=== PATIENT | female | born 1980 | race Caucasian/White ===

== ENCOUNTER → 2019-12-11 | Outpatient (CLI) | payer OTHER, SELFPAY ==
[2019-12-16 15:49] LABS: HPV Reflexed? NOT INDICATED
== END | disposition home or self-care (01) ==
LOC: LABSPEC 10:49
PROVIDERS: PCP Family Medicine; Visit Provider Obstetrics & Gynecology
DX: Z12.4 Encounter for screening for malignant neoplasm of cervix (principal)
CPT/HCPCS: 88175; G0145

== ENCOUNTER → 2022-03-22 | Outpatient (CLI) | payer OTHER, SELFPAY ==
--- NOTE | 2022-03-22 14:22 | BI_ITS ---
MAMMOGRAPHY - BILATERAL SCREENING 3-D TOMOSYNTHESIS REASON FOR EXAM: Female, 41 years old. Routine screening PERTINENT HISTORY: Aunt with breast cancer, history of reduction surgery.. TECHNIQUE: 2-D mammograms and 3-D Tomosynthesis of the breast (s) were performed. CAD was performed. COMPARISON: 11/27/2012 FINDINGS: The breast composition is composed of scattered fibroglandular density. Scattered benign calcifications are seen. No dense spiculated masses or suspicious microcalcifications are identified. Stable architectural distortion from previous reduction surgery. Stable postoperative calcifications. There is no skin thickening or retraction. There has been no significant change since the prior study. BI/SCRN MAMM (CAD)W/KEVEN BILAT IMPRESSION: No mammographic signs of malignancy. Routine yearly mammograms recommended. ASSESSMENT CATEGORY: BIRADS Category 2: Benign. A letter regarding these results will be sent to the patient by the facility within 30 days. FOLLOW UP RECOMMENDATION: Yearly follow up mammogram recommended. (A) Approximately 10% of breast cancers are not detected by mammography. A normal mammogram should not delay biopsy of a clinically suspicious abnormality. Electronically Signed: Tu Wise MD at 15:18 EDT ,
== END | disposition home or self-care (01) ==
LOC: OPBI 14:19
PROVIDERS: PCP Family Medicine; Visit Provider Obstetrics & Gynecology
DX: Z12.31 Encounter for screening mammogram for malignant neoplasm of breast (principal)
CPT/HCPCS: 77063; 77067

== ENCOUNTER 2022-08-06 15:29 | Emergency (ER) | payer OTHER, SELFPAY ==
[2022-08-06 15:30] VITALS: BP 129/75; PULSE 86; RESP 14; TEMP 36.6; O2SAT 100; BMI 39.2
--- NOTE | 2022-08-06 15:43 | EX.ED.DYSGE1 ---
HPI <GERTRUDE Rowe - Last Filed: 08/06/22 17:27> History of Present Illness Chief Complaint: Lower Extremity Injury Narrative Narrative: 31-year-old female presents with right leg swelling. In May 2022 she had right foot surgery for plantar fasciitis, Achilles lengthening, and a bone spur. She was having pain and swelling the leg and on 07/25/22 had an ultrasound showing a gastrocnemius DVT. She started Eliquis on 07/26 and has been compliant. Swelling never went down and 3 days ago the foot started to look red. She went to [facility] and had an ultrasound showing there was no longer DVT. She showed me these reports on her phone. They started Keflex in case it cellulitis. Her symptoms have not changed but she was worried and came in for reevaluation. She denies chest pain or shortness of breath. PFSH <GERTRUDE Rowe - Last Filed: 08/06/22 17:27> PFSH Allergy/AdvReac Type Severity Reaction Status Date / Time prednisone AdvReac Other Verified 08/06/22 15:30 Social History Smoking Status: Never smoker ROS <GERTRUDE Rowe - Last Filed: 08/06/22 17:27> ROS ED ROS Narrative Constitutional: Negative for fever, chills, malaise. CVS: Negative for palpitations, chest pain, syncope. Respiratory: Negative for shortness of breath, cough. GI: Negative for abdominal pain, nausea, vomiting. Neuro: Negative for motor/sensory dysfunction. Skin: Positive for redness of right leg. Musc: Positive for right lower extremity swelling. No trauma.. EXAM <GERTRUDE Rowe - Last Filed: 08/06/22 17:27> Physical Exam Narrative Exam Narrative: CONST: Patient sitting in no acute distress. EYES: Normal inspection. NECK: Normal inspection. RESP: No respiratory distress, CTAB. CVS: Regular rate and rhythm, no murmur, no gallop. SKIN: Slight erythema of right foot, no rash, warm, dry, intact. EXTREMITIES: Right lower leg is edematous as compared to left, no calf tenderness or palpable cords. Slight redness of the dorsal foot but no increased warmth, 2+ DP pulses. Full ROM, normal strength and sensation. NEURO: Oriented x4. PSYCH: Normal affect. Const Vital Signs: 08/06/22 15:30 08/06/22 16:32 Temperature 98 F Temperature Source Temporal Pulse Rate 86 59 L Respiratory Rate 14 16 Blood Pressure 129/75 H 126/77 H Blood Pressure Mean 93 Pulse Ox 100 97 Oxygen Delivery Method Room Air <Dr. Flakito Tarango MD - Last Filed: 08/06/22 16:27> Physical Exam Const Vital Signs: 08/06/22 15:30 08/06/22 16:32 Temperature 98 F Temperature Source Temporal Pulse Rate 86 59 L Respiratory Rate 14 16 Blood Pressure 129/75 H 126/77 H Blood Pressure Mean 93 Pulse Ox 100 97 Oxygen Delivery Method Room Air MDM <GERTRUDE Rowe - Last Filed: 08/06/22 17:27> MDM MDM Narrative Medical decision making narrative: External records reviewed: I reviewed the ultrasound reports from on 07/25 that showed a right gastrocnemius clot and then again on 08/03/2021 at [facility] which showed no clot present. I have personally performed a face to face assessment of the patient and have reviewed the [facility] Note. I performed a substantive portion of the visit including all aspects of the following. My browne findings include: History is [41-year-old female prior DVT several weeks ago in her right lower extremity after having podiatry surgery on her foot and Achilles. Currently on Eliquis. She has had more swelling. Was seen at [facility] emergency department.. Placed on Keflex. Had an ultrasound done at another facility which was negative. She wanted it reevaluated. No fever. No chills.] Exam is [well-appearing 41-year-old. Vital signs stable afebrile. Pulse ox 100%. H EENT exam unremarkable. Lungs clear. Heart regular rhythm. Abdomen soft nontender. Moving all 4 extremities. Right lower leg below the knee has 1+ pitting edema. Normal DP pulse. Able to wiggle her toes. I do not feel any warmth. There is no significant redness. There is edema on the right side compared to the left. Right foot is neurovascular intact with normal touch sensation. Left leg is unremarkable.] Medical Decision Making [patient with right leg swelling with a history of a prior recent DVT on Eliquis. Ultrasound be obtained tomorrow. She is currently on antibiotics even though clinically I do not think this is infected. She can do outpatient follow-up if the noninvasive study is negative. Normally we will order noninvasive study to have done here tomorrow.] Other additions or changes: [None] <Dr. Flakito Tarango MD - Last Filed: 08/06/22 16:27> [facility] Narrative Medical decision making narrative: I have personally performed a face to face assessment of the patient and have reviewed the [facility] Note. I performed a substantive portion of the visit including all aspects of the following. My browne findings include: History is [41-year-old female prior DVT several weeks ago in her right lower extremity after having podiatry surgery on her foot and Achilles. Currently on Eliquis. She has had more swelling. Was seen at [facility] emergency department.. Placed on Keflex. Had an ultrasound done at another facility which was negative. She wanted it reevaluated. No fever. No chills.] Exam is [well-appearing 41-year-old. Vital signs stable afebrile. Pulse ox 100%. H EENT exam unremarkable. Lungs clear. Heart regular rhythm. Abdomen soft nontender. Moving all 4 extremities. Right lower leg below the knee has 1+ pitting edema. Normal DP pulse. Able to wiggle her toes. I do not feel any warmth. There is no significant redness. There is edema on the right side compared to the left. Right foot is neurovascular intact with normal touch sensation. Left leg is unremarkable.] Medical Decision Making [patient with right leg swelling with a history of a prior recent DVT on Eliquis. Ultrasound be obtained tomorrow. She is currently on antibiotics even though clinically I do not think this is infected. She can do outpatient follow-up if the noninvasive study is negative. Normally we will order noninvasive study to have done here tomorrow.] Other additions or changes: [None] Discharge Plan Triage Chief Complaint: Lower Extremity Injury ED Midlevel Provider: Sandi Garg ED Provider: Flakito Tarango Dx/Rx/DC Orders Clinical Impression: Edema of right lower extremity, History of deep vein thrombosis Instructions: ED Cellulitis, ED Peripheral Edema, Unilateral Other Ambulatory Orders: Venous Duplex US, Unilateral (Stat) Facility: [facility] - Location: [facility] Ordered By: Sandi Garg Primary Care Provider: Melony Gomez Referrals: Kemi Rivera MD [Non-Staff] - Activity Restrictions/Additional Instructions: I provided an order to have a repeat ultrasound done tomorrow just to ensure there is no clots. If it is negative, the redness is most likely cellulitis and I would continue the antibiotics. If the redness significantly worsens or you develop a fever come back to an ER for reevaluation. Disposition Disposition: Home, Self Care Discharge Date/Time: 08/06/22 16:32
[2022-08-06 16:32] VITALS: BP 126/77; PULSE 59; RESP 16; O2SAT 97
== END 2022-08-06 16:32 | disposition home or self-care (01) ==
PROVIDERS: Emergency Provider Emergency Medicine; PCP Internal Medicine; Visit Provider Emergency Medicine
DX: R60.0 Localized edema (principal); Z86.718 Personal history of other venous thrombosis and embolism; Z79.01 Long term (current) use of anticoagulants
CPT/HCPCS: 99282

== ENCOUNTER → 2022-08-07 | Outpatient (CLI) | payer OTHER, SELFPAY ==
--- NOTE | 2022-08-07 12:58 | VDLE_ITS ---
Reason For Study: Swelling RIGHT LEFT GSV is normal. CFV is compressible, spontaneous, phasic, CFV is compressible, spontaneous, phasic, competent, and demonstrates normal competent and demonstrates normal augmentation. augmentation. FV is compressible, spontaneous, phasic, competent and demonstrates normal augmentation. POP V is compressible, spontaneous, phasic, competent and demonstrates normal augmentation. T/P Trunk is compressible. PTV is compressible. RT PerV is compressible. Possible hematoma, trauma or injury noted in rt mid calf measuring 3.6cm x 1.6cm. The area appears non vascularized and hypoechoic. Procedure This is a venous duplex using B-mode, color flow and spectral Doppler. Exam performed in department. The exam was diagnostic. VL/Venous Duplex US, Unilateral Interpretation Summary Deep veins of the right lower extremity are patent and compressible segmentally . There is no evidence of right lower extremity deep vein thrombosis. The right great sapheno us vein appears patent and compressible segmentally. Non-vascularized collection, 3.6 x 1.6 cm, right calf Ordering Physician: Sandi Garg Referring Physician: Melony Gomez Performed By: Bossman Parada RVT
== END | disposition home or self-care (01) ==
LOC: CVS 12:57
PROVIDERS: PCP Internal Medicine; Visit Provider Physician Assistant
DX: R22.41 Localized swelling, mass and lump, right lower limb (principal)
CPT/HCPCS: 93971

== ENCOUNTER → 2023-03-29 | Outpatient (CLI) | payer OTHER, SELFPAY ==
--- NOTE | 2023-03-29 13:53 | BI_ITS ---
MAMMOGRAPHY - BILATERAL SCREENING REASON FOR EXAM: Female, 42 years old. Routine annual screening examination. PERTINENT HISTORY: Aunt with breast cancer. History of prior bilateral breast reduction surgery. TECHNIQUE: Digital bilateral breast keven (3D mammographic acquisition) in the CC and MLO projections. 2-D mediolateral oblique (MLO) and craniocaudad (CC) views of both breasts were obtained. CAD: Full Field Digital Mammography with Computer Added Detection was performed. COMPARISON: Comparison is made with prior study dated March 22, 2022 and May 31, 2016. FINDINGS: Breast Composition: The breasts are heterogeneously dense, which may obscure small masses. There are no dominant masses or suspicious calcifications. The patient is status post bilateral breast reduction with postsurgical changes seen along the inferior deep lateral aspect of the breasts. Coarse calcifications are seen at the surgical site at the 6:00 position of the right breast. A tissue clip marker is also seen in both breasts. Stable benign-appearing bilateral axillary lymph nodes. No other significant abnormalities are identified. There has been no significant change since the prior study. BI/SCRN MAMM (CAD)W/KEVEN BILAT IMPRESSION: Stable bilateral screening mammogram. Yearly follow-up mammogram recommended. (A) ASSESSMENT CATEGORY: BIRADS Category 2: Benign. A letter regarding these results will be sent to the patient by the facility within 30 days. Approximately 10% of breast cancers are not detected by mammography. A normal mammogram should not delay biopsy of a clinically suspicious abnormality. [id number] Electronically Signed: Chin Amado MD at 14:58 EDT ,
== END | disposition home or self-care (01) ==
LOC: OPBI 13:52
PROVIDERS: PCP Internal Medicine; Referring Provider Obstetrics & Gynecology; Visit Provider Obstetrics & Gynecology
DX: Z12.31 Encounter for screening mammogram for malignant neoplasm of breast (principal)
CPT/HCPCS: 77063; 77067

== ENCOUNTER → 2024-04-03 | Outpatient (CLI) | payer OTHER, SELFPAY ==
--- NOTE | 2024-04-03 11:52 | BI_ITS ---
MAMMOGRAPHY - BILATERAL SCREENING REASON FOR EXAM: Female, 43 years old. Routine annual screening examination. PERTINENT HISTORY: Aunt with breast cancer. History of prior bilateral breast reduction surgery. Prior left ultrasound-guided breast biopsy. TECHNIQUE: Digital bilateral breast keven (3D mammographic acquisition) in the CC and MLO projections. 2-D mediolateral oblique (MLO) and craniocaudad (CC) views of both breasts were obtained. CAD: Full Field Digital Mammography with Computer Added Detection was performed. COMPARISON: Comparison is made with prior study March 29, 2023 and April 01, 2022. FINDINGS: Breast Composition: The breasts are heterogeneously dense, which may obscure small masses. There are no dominant masses or suspicious calcifications. A tissue clip marker is seen in the anterior upper medial aspect of the left breast as well as in the deep central portion of the right breast. No other significant abnormalities are identified. There has been no significant change since the prior study. BI/SCRN MAMM (CAD)W/KEVEN BILAT IMPRESSION: Stable bilateral screening mammogram. Yearly follow-up mammogram recommended. (A) ASSESSMENT CATEGORY: BIRADS Category 2: Benign. A letter regarding these results will be sent to the patient by the facility within 30 days. Approximately 10% of breast cancers are not detected by mammography. A normal mammogram should not delay biopsy of a clinically suspicious abnormality. [id number] Electronically Signed: Chin Amado MD at 13:48 EDT ,
== END | disposition home or self-care (01) ==
LOC: OPBI 11:49
PROVIDERS: PCP Internal Medicine; Referring Provider Obstetrics & Gynecology; Visit Provider Obstetrics & Gynecology
DX: Z12.31 Encounter for screening mammogram for malignant neoplasm of breast (principal)
CPT/HCPCS: 77063; 77067